=== PATIENT | male | born 1985 | race Hispanic/Latino ===

== ENCOUNTER 2021-10-27 20:03 | Emergency (ER) | payer SELFPAY ==
[~2021-10-27] VITALS: Ht 165.1 cm; Wt 70.3 kg
[2021-10-27] MEDS ORDERED: CLINDAMYCIN IVPB 900MG/50ML 50 ML IV SCH (21:00)
[2021-10-27] MEDS ORDERED: KETOROLAC 15MG/ML VIAL (15MG/ML) IV ONE ×2 (21:00)
[2021-10-27] MEDS ORDERED: KETOROLAC 30MG VIAL (30MG/ML) ONE (21:20)
[2021-10-27 21:22] LABS: BASOPHILS % (AUTO) 0.4 % (0.0-5.0); EOSINOPHILS % (AUTO) 2.8 % (0.0-8.0); HEMATOCRIT 37.7 % (42-54); LYMPHOCYTES % (AUTO) 24.7 % (21.0-51.0); MEAN CORPUSCULAR HEMOGLOBIN 30.8 pg (27.0-33.0); MEAN CORPUSCULAR VOLUME 90.8 fL (79-99); MONOCYTES % (AUTO) 6.4 % (3.0-13.0); NEUTROPHILS % (AUTO) 65.4 % (40.0-77.0); PLATELET COUNT (AUTO) 323 K/uL (130-400); RED BLOOD CELL COUNT(AUTO) 4.15 MIL/uL (4.50-6.20); RED CELL DISTRIBUTION WIDTH 12.7 % (11.0-15.5); WHITE BLOOD COUNT (AUTO) 11.9 K/uL (4.8-10.8)
[2021-10-27 21:23] LABS: APPEARANCE,URINE Clear (CLEAR); BILIRUBIN,URINE Negative (NEGATIVE); COLOR,URINE Yellow (YELLOW); GLUCOSE, URINE (UA) Negative (NEGATIVE); KETONES,URINE Negative (NEGATIVE); LEUKOCYTE ESTERASE ,URINE Negative (NEGATIVE); NITRATE,URINE Negative (NEGATIVE); OCCULT BLOOD,URINE Nonhemolyzed Trace (NEGATIVE); PROTEIN,URINE Negative (NEGATIVE)
[2021-10-27 21:30] LABS: AMPHET/METH SCREEN,URINE NEGATIVE (NEGATIVE); BARBITURATE SCREEN, URINE NEGATIVE (NEGATIVE); BENZODIAZEPINES SCREEN,URINE POSITIVE (NEGATIVE); CANNABINOID SCREEN,URINE POSITIVE (NEGATIVE); COCAINE SCREEN,URINE POSITIVE (NEGATIVE); OPIATE SCREEN,URINE NEGATIVE (NEGATIVE); PHENCYCLIDINE SCREEN,URINE NEGATIVE (NEGATIVE)
[2021-10-27 21:32] LABS: CREATININE 1.2 mg/dL (0.5-1.5); POTASSIUM 3.3 mmol/L (3.5-5.1)
[2021-10-27 21:33] LABS: WBC,URINE 0-1 /HPF (0-1)
[2021-10-27 21:34] LABS: BACTERIA,URINE Few /HPF (None Seen); SQUAMOUS EPITHELIAL CELL,UR Rare /HPF (0-2)
[2021-10-27 21:34] LABS: INR 0.88 (0.85-1.15); PROTHROMBIN TIME 9.7 SEC (9.6-11.6)
[2021-10-27 21:35] LABS: AMORPHOUS SEDIMENT,UR Rare /LPF (None Seen)
[2021-10-27 21:36] LABS: ALBUMIN 3.9 g/dL (3.5-5.0); BILIRUBIN,TOTAL 0.2 mg/dL (0.2-1.0); PARTIAL THROMBOPLASTIN TIME 29.3 SEC (26.3-35.5); TOTAL PROTEIN, SERUM 7.4 g/dL (6.0-8.3)
[2021-10-27] MEDS ORDERED: IBUP-2070 PO (22:16)
[2021-10-27] MEDS ORDERED: CLIN-141 PO (22:16)
[2021-10-27 22:36] VITALS: BP 124/87
== END 2021-10-27 22:48 | disposition home or self-care (01) ==
LOC: EDH 20:03
DX: L03.113 Cellulitis of right upper limb (principal); F41.9 Anxiety disorder, unspecified; Z79.1 Long term (current) use of non-steroidal anti-inflammatories (NSAID)
CPT/HCPCS: 36415; 73090; 80053; 80305; 81001; 82550; 85025; 85610; 85730; 96365; 96375; 99284; J1885; J3490